=== PATIENT | female | born 1985 | race American Indian/Alaskan Native ===

== ENCOUNTER 2017-03-28 08:03 | Emergency (ER) | payer SELFPAY ==
[2017-03-28 08:16] VITALS: BP 138/86
== END 2017-03-28 11:39 | disposition left against medical advice (07) ==
LOC: ED 08:03
DX: K06.9 Disorder of gingiva and edentulous alveolar ridge, unspecified (principal); Z53.21 Procedure and treatment not carried out due to patient leaving prior to being seen by health care provider

== ENCOUNTER 2017-03-29 18:48 | Emergency (ER) | payer MEDICAID ==
[2017-03-29 22:39] VITALS: BP 115/83
[2017-03-29] MEDS ORDERED: LIDOCAINE VISCOUS 2% PO ONE (23:50)
[2017-03-29] MEDS ORDERED: MOTRIN PO ONE (23:50)
--- NOTE | 2017-03-29 23:56 | Emergency Department Report ---
ED General Adult HPI - General Chief complaint: Dental/Oral Stated complaint: TOOTHACHE Time Seen by Provider: 03/29/17 23:36 Source: patient, RN notes reviewed, old records reviewed Mode of arrival: Ambulatory Limitations: No Limitations - History of Present Illness Initial comments: This is a 31-year-old female. She is previously unknown to me. She reports that she is not . The patient presents to the ER with a complaint of gum pain, and swollen gums, and dental pain. The patient reports that she purchase some [id number] oral gel and feels like this made her symptoms worse. She has poor dentition and reports that she knows that she needs to follow up with a dentist. No other injuries, no other complaints, no airway issues. Report sensitivity to heat, reports cold improves her symptoms. -: Gradual Location: mouth Severity scale (0 -10): 7 Quality: aching Consistency: intermittent Improves with: cold therapy Worsens with: eating Associated Symptoms: denies other symptoms - Related Data Previous Rx's Medication Instructions Recorded Last Taken Type HYDROcodone/ACETAMINOPHEN [Lortab 1 each PO Q6H #10 tablet 03/15/14 Unknown Rx 5-325 mg Tablet] Penicillin Vk [Veetids TAB] 500 mg PO QID #40 tablet 03/15/14 Unknown Rx Azithromycin [Zithromax] 500 mg PO QDAY #3 tablet 08/10/14 Unknown Rx Ondansetron [Zofran Odt] 4 mg PO Q6H #20 tab.rapdis 08/10/14 Unknown Rx Chlorhexidine Mouthwash [Peridex] 15 ml MM BID #1 bottle 03/29/17 Unknown Rx Ibuprofen [Motrin] 600 mg PO Q8H PRN #30 tablet 03/29/17 Unknown Rx oxyCODONE [Roxicodone] 5 mg PO Q6HR PRN #15 tablet 03/29/17 Unknown Rx Allergies Allergy/AdvReac Type Severity Reaction Status Date / Time No Known Allergies Allergy Verified 08/10/14 01:34 ED Review of Systems ROS: Stated complaint: TOOTHACHE Other details as noted in HPI Constitutional: denies: malaise ENT: dental pain. denies: epistaxis Respiratory: denies: cough Cardiovascular: denies: chest pain Gastrointestinal: denies: abdominal pain Musculoskeletal: denies: back pain Skin: denies: lesions Neurological: denies: weakness ED Past Medical Hx - Past Medical History Additional medical history: Patient states that 2 months ago she had her IUD removed and she denies having intercourse since that time. Patient also states he had a negative test at the hospital in [place]. 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 - Social History Smoking Status: Never Smoker Substance Use Type: None - Medications Home Medications: Home Medications Medication Instructions Recorded Confirmed Last Taken Type HYDROcodone/ACETAMINOPHEN [Lortab 1 each PO Q6H #10 tablet 03/15/14 Unknown Rx 5-325 mg Tablet] Penicillin Vk [Veetids TAB] 500 mg PO QID #40 tablet 03/15/14 Unknown Rx Azithromycin [Zithromax] 500 mg PO QDAY #3 tablet 08/10/14 Unknown Rx Ondansetron [Zofran Odt] 4 mg PO Q6H #20 tab.rapdis 08/10/14 Unknown Rx Chlorhexidine Mouthwash [Peridex] 15 ml MM BID #1 bottle 03/29/17 Unknown Rx Ibuprofen [Motrin] 600 mg PO Q8H PRN #30 tablet 03/29/17 Unknown Rx oxyCODONE [Roxicodone] 5 mg PO Q6HR PRN #15 tablet 03/29/17 Unknown Rx ED Physical Exam - General Limitations: No Limitations General appearance: alert, in no apparent distress - Head Head exam: Present: atraumatic, normocephalic - Eye Eye exam: Present: normal appearance, PERRL, EOMI. Absent: nystagmus - ENT ENT exam: Present: normal orophraynx, mucous membranes moist, TM's normal bilaterally, normal external ear exam, other (patient has poor dentition. She has recession in her gingiva. There is gingival hyperplasia and discoloration. There is no stridor or dysphonia. Tooth #17 is partially fractured. Numerous dental caries are noted.) - Neck Neck exam: Present: normal inspection, full ROM. Absent: tenderness, meningismus - Respiratory Respiratory exam: Present: normal lung sounds bilaterally. Absent: respiratory distress, wheezes, rales, rhonchi, stridor, chest wall tenderness, accessory muscle use, decreased breath sounds, prolonged expiratory - Cardiovascular Cardiovascular Exam: Present: regular rate, normal rhythm, normal heart sounds. Absent: systolic murmur, diastolic murmur, rubs, gallop - GI/Abdominal GI/Abdominal exam: Present: soft, normal bowel sounds. Absent: distended, tenderness, guarding, rebound, rigid, pulsatile mass - Extremities Exam Extremities exam: Present: normal inspection, full ROM, normal capillary refill. Absent: pedal edema, joint swelling, calf tenderness - Back Exam Back exam: Present: normal inspection, full ROM. Absent: tenderness, CVA tenderness (R), CVA tenderness (L), muscle spasm, paraspinal tenderness, vertebral tenderness - Neurological Exam Neurological exam: Present: alert, oriented X3, normal gait, other (Extraocular movements intact. Tongue midline. No facial droop. Facial sensation intact to light touch in the V1, V2, V3 distribution bilaterally. 5 and 5 strength in 4 extremities.. Sensation is intact to light touch in 4 extremities.). Absent : motor sensory deficit - Psychiatric Psychiatric exam: Present: normal affect, normal mood - Skin Skin exam: Present: warm, dry, intact, normal color. Absent: rash ED Course Vital Signs 03/29/17 03/29/17 20:00 22:38 Temperature 98.8 F 98.4 F Pulse Rate 93 H 83 Respiratory 18 Rate Blood Pressure 140/83 Blood Pressure 115/83 [Left] O2 Sat by Pulse 100 98 Oximetry ED Medical Decision Making - Lab Data Vital Signs 03/29/17 03/29/17 20:00 22:38 Temperature 98.8 F 98.4 F Pulse Rate 93 H 83 Respiratory 18 Rate Blood Pressure 140/83 Blood Pressure 115/83 [Left] O2 Sat by Pulse 100 98 Oximetry - Medical Decision Making Differential diagnosis: Medication side effect, dentalgia, dental caries, dental pain Pain medication Assessment and plan: 31-year-old female with baseline poor dentition with nonspecific dentalgia. She is afebrile with reassuring vital signs, has no clinical indication of upper airway compromise at this time. She will be started on chlorhexidine, she will be given pain medication, and she is instructed to follow up with outpatient dental. No emergent condition exists at this time. Critical care attestation.: If time is entered above; I have spent that time in minutes in the direct care of this critically ill patient, excluding procedure time. ED Disposition Clinical Impression: Dentalgia Disposition: TO HOME OR SELFCARE Is pt being admited?: No Does the pt Need Aspirin: No Condition: Stable Instructions: Dental Caries (ED) Additional Instructions: Take the medications as directed. Avoid consumption or [place]. and use of follow-up with a dentist within the next week. When taking the oxycodone, do not drive, consume alcohol, or make important decisions. Return to the ER right away with new pain, worsened pain, migration of pain, fevers, chills, chest pain, shortness of breath, intractable nausea or vomiting, inability to tolerate liquid feeds. Prescriptions: Chlorhexidine Mouthwash [Peridex] 15 ml MM BID #1 bottle Ibuprofen [Motrin] 600 mg PO Q8H PRN #30 tablet PRN Reason: Pain oxyCODONE [Roxicodone] 5 mg PO Q6HR PRN #15 tablet PRN Reason: Pain Referrals: PRIMARY CARE,MD [Primary Care Provider] - 3-5 Days [facility] [Outside] - 3-5 Days
== END 2017-03-29 23:55 | disposition home or self-care (01) ==
LOC: ED 18:48
DX: K08.89 Other specified disorders of teeth and supporting structures (principal)
CPT/HCPCS: 99282

== ENCOUNTER 2017-07-19 20:03 | Emergency (ER) | payer MEDICAID ==
[2017-07-19 21:50] VITALS: BP 123/83
[2017-07-19 22:33] LABS: Basophils % (Auto) 0.3 % (0.0-1.8); Eosinophils % (Auto) 1.1 % (0.0-4.3); Hematocrit 38.5 % (30.3-42.9); Hemoglobin 12.4 gm/dl (10.1-14.3); Mean Corpuscular HGB Conc 32 % (30-34); Mean Corpuscular Hemoglobin 28 pg (28-32); Mean Corpuscular Volume 88 fl (79-97); Platelet Count 306 K/mm3 (140-440); Red Blood Count 4.38 M/mm3 (3.65-5.03); Red Cell Distribution Width 13.3 % (13.2-15.2)
[2017-07-19 22:35] LABS: Alanine Aminotransferase 12 units/L (7-56); Albumin 4.3 g/dL (3.9-5); Alkaline Phosphatase 69 units/L (35-129); Anion Gap 19 mmol/L; BUN/Creatinine Ratio 13; Blood Urea Nitrogen 10 mg/dL (7-17); Calcium 9.1 mg/dL (8.4-10.2); Carbon Dioxide 23 mmol/L (22-30); Chloride 101.5 mmol/L (98-107); Glucose 110 mg/dL (65-100); Lipase 31 units/L (13-60); Potassium 3.9 mmol/L (3.6-5.0); Sodium 140 mmol/L (137-145)
[2017-07-19 23:15] LABS: Albumin/Globulin Ratio 1.3 %; Total Protein 7.5 g/dL (6.3-8.2)
== END 2017-07-20 01:15 | disposition left against medical advice (07) ==
LOC: ED 20:03
DX: R10.9 Unspecified abdominal pain (principal); Z53.21 Procedure and treatment not carried out due to patient leaving prior to being seen by health care provider
CPT/HCPCS: 36415; 80048; 80053; 83690; 84484; 84703; 85025; 93005; 93010

== ENCOUNTER 2017-08-21 07:18 | Emergency (ER) | payer MEDICAID ==
[2017-08-21 09:13] LABS: HCG Qualitative,Urine Positive (Negative)
[2017-08-21 09:15] LABS: Bacteria,Urine 2+ /HPF (Negative); Bilirubin,Urine NEG (Negative); Blood,Urine SM (Negative); Color,Urine Yellow (Yellow); Mucus,Urine 2+ /HPF; Nitrite,Urine NEG (Negative)
[2017-08-21 10:38] LABS: Basophils # (Auto) 0.1 K/mm3 (0.0-0.1); Eosinophils # (Auto) 0.1 K/mm3 (0.0-0.4); Eosinophils % (Auto) 0.8 % (0.0-4.3); Hemoglobin 12.5 gm/dl (10.1-14.3); Lymphocytes # (Auto) 3.2 K/mm3 (1.2-5.4); Lymphocytes % (Auto) 40.9 % (13.4-35.0); Mean Corpuscular HGB Conc 33 % (30-34); Mean Corpuscular Hemoglobin 29 pg (28-32); Mean Corpuscular Volume 88 fl (79-97); Monocytes # (Auto) 0.4 K/mm3 (0.0-0.8); Platelet Count 318 K/mm3 (140-440); Red Blood Count 4.31 M/mm3 (3.65-5.03); Red Cell Distribution Width 13.4 % (13.2-15.2)
[2017-08-21 10:54] LABS: Alanine Aminotransferase 18 units/L (7-56); Albumin 4.1 g/dL (3.9-5); BUN/Creatinine Ratio 10; Blood Urea Nitrogen 8 mg/dL (7-17); Calcium 9.2 mg/dL (8.4-10.2); Hemolysis Index 0
[2017-08-21] MEDS ORDERED: REGLAN IV ONE (13:23)
[2017-08-21] MEDS ORDERED: NACL 0.9% 1000 ML 1,000 ML IV ONE (13:23)
[2017-08-21 14:27] VITALS: BP 119/65
--- NOTE | 2017-08-21 14:38 | Emergency Department Report ---
ED N/V/D HPI - General Chief complaint: Abdominal Pain Stated complaint: ABD CRAMPS X2 WKS Time Seen by Provider: 08/21/17 13:23 Source: patient Mode of arrival: Ambulatory Limitations: No Limitations - History of Present Illness Initial comments: This is a 31-year-old female nontoxic, well nourished in appearance, no acute signs of distress presents to the ED with c/o of nausea, vomiting, back pain and abdominal cramps 2 weeks. Patient denies any abdominal pain, fever, chills , nausea, dizziness, tiredness, lethargy, vomiting, chest pain shortness of breath. Patient has back pain as aching with level of 8/10. Patient denies any drug allergies. Patient stated her abdominal cramping is resolved now and is only intermittent in the pelvis region. He denies any vaginal discharge or vaginal bleeding. Patient stated menstrual cycle 07/22/2017. MD complaint: nausea, vomiting, abdominal pain -: week(s) (2) Associated Abdominal Pain: No Radiation: none Severity: mild Pain Scale: 0 Quality: cramping Consistency: intermittent Improves with: none Worsens with: none Associated Symptoms: denies other symptoms. denies: myalgias, chest pain, cough , diaphoresis, fever/chills, headaches, loss of appetite, malaise, nausea/ vomiting, rash, dysuria, shortness of breath, syncope, weakness - Related Data Previous Rx's Medication Instructions Recorded Last Taken Type HYDROcodone/ACETAMINOPHEN [Lortab 1 each PO Q6H #10 tablet 03/15/14 Unknown Rx 5-325 mg Tablet] Penicillin Vk [Veetids TAB] 500 mg PO QID #40 tablet 03/15/14 Unknown Rx Azithromycin [Zithromax] 500 mg PO QDAY #3 tablet 08/10/14 Unknown Rx Ondansetron [Zofran Odt] 4 mg PO Q6H #20 tab.rapdis 08/10/14 Unknown Rx Chlorhexidine Mouthwash [Peridex] 15 ml MM BID #1 bottle 03/29/17 Unknown Rx Ibuprofen [Motrin] 600 mg PO Q8H PRN #30 tablet 03/29/17 Unknown Rx oxyCODONE [Roxicodone] 5 mg PO Q6HR PRN #15 tablet 03/29/17 Unknown Rx Metoclopramide HCl [Reglan TAB] 5 mg PO Q6H #20 tablet 08/21/17 Unknown Rx Nitrofurantoin Woods/M-Cryst 100 mg PO Q12HR #14 capsule 08/21/17 Unknown Rx [Macrobid CAP] Allergies Allergy/AdvReac Type Severity Reaction Status Date / Time No Known Allergies Allergy Verified 08/10/14 01:34 ED Review of Systems ROS: Stated complaint: ABD CRAMPS X2 WKS Other details as noted in HPI Constitutional: denies: chills, fever Eyes: denies: eye pain, eye discharge, vision change ENT: denies: ear pain, throat pain Respiratory: denies: cough, shortness of breath, wheezing Cardiovascular: denies: chest pain, palpitations Endocrine: no symptoms reported Gastrointestinal: nausea, vomiting. denies: abdominal pain, diarrhea Genitourinary: denies: urgency, dysuria, discharge Musculoskeletal: back pain. 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 - Social History Smoking Status: Never Smoker Substance Use Type: Non Opiate Pain - Medications Home Medications: Home Medications Medication Instructions Recorded Confirmed Last Taken Type HYDROcodone/ACETAMINOPHEN [Lortab 1 each PO Q6H #10 tablet 03/15/14 Unknown Rx 5-325 mg Tablet] Penicillin Vk [Veetids TAB] 500 mg PO QID #40 tablet 03/15/14 Unknown Rx Azithromycin [Zithromax] 500 mg PO QDAY #3 tablet 08/10/14 Unknown Rx Ondansetron [Zofran Odt] 4 mg PO Q6H #20 tab.rapdis 08/10/14 Unknown Rx Chlorhexidine Mouthwash [Peridex] 15 ml MM BID #1 bottle 03/29/17 Unknown Rx Ibuprofen [Motrin] 600 mg PO Q8H PRN #30 tablet 03/29/17 Unknown Rx oxyCODONE [Roxicodone] 5 mg PO Q6HR PRN #15 tablet 08/17/17 Unknown Rx Metoclopramide HCl [Reglan TAB] 5 mg PO Q6H #20 tablet 08/21/17 Unknown Rx Nitrofurantoin Woods/M-Cryst 100 mg PO Q12HR #14 capsule 08/21/17 Unknown Rx [Macrobid CAP] ED Physical Exam - General Limitations: No Limitations General appearance: alert, in no apparent distress - Head Head exam: Present: atraumatic, normocephalic, normal inspection - Eye Eye exam: Present: normal appearance, PERRL, EOMI. Absent: scleral icterus, conjunctival injection, nystagmus, periorbital swelling, periorbital tenderness Pupils: Present: normal accommodation - ENT ENT exam: Present: normal exam, normal orophraynx, mucous membranes moist, TM's normal bilaterally, normal external ear exam - Neck Neck exam: Present: normal inspection, full ROM. Absent: tenderness, meningismus, lymphadenopathy, thyromegaly - Respiratory Respiratory exam: Present: normal lung sounds bilaterally. Absent: respiratory distress - Cardiovascular Cardiovascular Exam: Present: regular rate, normal rhythm, normal heart sounds. Absent: bradycardia, tachycardia, irregular rhythm, systolic murmur, diastolic murmur, rubs, gallop - GI/Abdominal GI/Abdominal exam: Present: soft, normal bowel sounds. Absent: distended, tenderness, guarding, rebound, rigid, diminished bowel sounds - Expanded GI/Abdominal Exam Expanded GI/Abdominal exam: Absent: psoas sign, obturator sign, heel tap sign, Gilmore's sign, Rovsing's sign, tenderness at [place]bur[place]'s Point, ascites - Rectal Rectal exam: Present: deferred - Extremities Exam Extremities exam: Present: normal inspection, full ROM, normal capillary refill. Absent: tenderness, pedal edema, joint swelling, calf tenderness - Back Exam Back exam: Present: normal inspection, full ROM, paraspinal tenderness (lumbar region). Absent: tenderness, CVA tenderness (R), CVA tenderness (L), muscle spasm, vertebral tenderness, rash noted - Expanded Back Exam Expanded Back exam: Absent: saddle anesthesia Back exam: Negative Straight Leg Raising: Left, Right - Neurological Exam Neurological exam: Present: alert, oriented X3, CN II-XII intact, normal gait, reflexes normal - Psychiatric Psychiatric exam: Present: normal affect, normal mood - Skin Skin exam: Present: warm, dry, intact, normal color. Absent: rash ED Course Vital Signs 08/21/17 08/21/17 08/21/17 07:43 14:26 14:27 Temperature 98.4 F 98 F Pulse Rate 114 H 104 H Respiratory 16 18 20 Rate Blood Pressure 125/75 Blood Pressure 119/65 [Left] O2 Sat by Pulse 95 100 Oximetry - Reevaluation(s) Reevaluation #1: 08/21/17 14:48 Patient is speaking in full sentences with no signs of distress noted. ED Medical Decision Making - Lab Data Result diagrams: 08/21/17 Unknown 08/21/17 Unknown - Medical Decision Making This is a 31-year-old female presents with positive and nausea vomiting. Patient is stable and was examined by me. CBC, BMP, UA, and as as obtained. UA indicates UTI. Patient received 1 L of normal saline and 10 mg of Reglan. Quantitative test obtained. Patient stated she felt much better and a by mouth challenge has been obtained and patient tolerated well with no nausea vomiting. Patient discharged with Macrobid, Reglan. Patient was instructed to increase hydration. At time time of discharge, the patient does not seem toxic or ill in appearance. No acute signs of distress noted. Patient agrees to discharge treatment plan of care. No further questions noted by the patient. Critical care attestation.: If time is entered above; I have spent that time in minutes in the direct care of this critically ill patient, excluding procedure time. ED Disposition Clinical Impression: Qualifiers: Weeks of gestation: unspecified Qualified Code(s): Z34.90 - Encounter for supervision of normal , unspecified, unspecified trimester Nausea & vomiting Qualifiers: Vomiting type: unspecified Vomiting Intractability: non-intractable Qualified Code(s): R11.2 - Nausea with vomiting, unspecified UTI (urinary tract infection) Qualifiers: Urinary tract infection type: site unspecified Hematuria presence: with hematuria Qualified Code(s): N39.0 - Urinary tract infection, site not specified Disposition: -01 TO HOME OR SELFCARE Is pt being admited?: No Does the pt Need Aspirin: No Condition: Stable Instructions: Metoclopramide (By mouth), Nitrofurantoin Combination (By mouth) , (ED), Urinary Tract Infection in Women (ED) Additional Instructions: Follow-up with a primary care doctor/rn hospital in 3-5 days or if symptoms worsen and continue return to emergency room as soon as possible. Increase hydration as much as possible. Prescriptions: Metoclopramide HCl [Reglan TAB] 5 mg PO Q6H #20 tablet Nitrofurantoin Woods/M-Cryst [Macrobid CAP] 100 mg PO Q12HR #14 capsule Referrals: DERRICK MARTIN MD [Primary Care Provider] - 3-5 Days PRIMARY CARE, [Referring] - 3-5 Days MADDIE ALBA MD [Staff Physician] - 3-5 Days [facility] [Outside] - 3-5 Days [facility] [Outside] - 3-5 Days Forms: Work/School Release Form(ED)
== END 2017-08-21 15:51 | disposition home or self-care (01) ==
LOC: ED 07:18
DX: O23.41 Unspecified infection of urinary tract in pregnancy, first trimester (principal); Z3A.01 Less than 8 weeks gestation of pregnancy
CPT/HCPCS: 36415; 80053; 81001; 81025; 84702; 85025; 96361; 96374; 99283; J2765; J7030

== ENCOUNTER 2018-03-16 00:48 | Outpatient (CLI) | payer MEDICAID ==
[2018-03-16 01:23] VITALS: BP 106/70
[2018-03-16] MEDS ORDERED: LACTATED RINGERS 1,000 ML IV ONE (01:36)
[2018-03-16 01:58] LABS: Bacteria,Urine 1+ /HPF (Negative); Bilirubin,Urine NEG (Negative); Blood,Urine NEG (Negative); Color,Urine Yellow (Yellow); Hyaline Casts,Urine 2 /LPF; Mucus,Urine 1+ /HPF; Urobilinogen,Urine < 2.0 mg/dL (<2.0)
--- NOTE | 2018-03-16 03:00 | Ultrasound Report ---
FINAL REPORT EXAM: US OB LIMITED HISTORY: s/p fall TECHNIQUE: A limited OB sonogram was obtained for evaluation of the placenta. FINDINGS: The placenta is anterior and is grade 1. There is no evidence of placental abruption or previa. The heart rate is 154 BPM. The fetus is in transverse position with the head toward the maternal left side. IMPRESSION: No evidence of placental abruption or previa. The heart rate is 154 BPM.
--- NOTE | 2018-03-16 03:02 | Ultrasound Report ---
FINAL REPORT EXAM: US OB BPP WO NON-STRESS HISTORY: s/p fall TECHNIQUE: A limited OB sonogram was obtained for evaluation of the biophysical profile. FINDINGS: For breathing movements, a score of 2 out of 2 was obtained. For movements, a score of 2 out of 2 was obtained. For posture in tone, a score of 2 out of 2 was obtained. For qualitative amniotic fluid volume, a score of 2 out of 2 was obtained. The heart rate is 154 BPM. IMPRESSION: Biophysical profile score of 8 out of 8. The heart rate is 154 BPM.
== END 2018-03-16 03:31 | disposition home or self-care (01) ==
LOC: TRG 00:48
PROVIDERS: ATTEND Obstetrics & Gynecology
DX: O47.03 False labor before 37 completed weeks of gestation, third trimester (principal); Z3A.33 33 weeks gestation of pregnancy
CPT/HCPCS: 59025; 76815; 76819; 81001; 82962

== ENCOUNTER 2018-04-15 20:17 | Inpatient (IN) | payer MEDICAID ==
[2018-04-15] MEDS ORDERED: ZOFRAN IV PRN (20:22)
[2018-04-15] MEDS ORDERED: BRETHINE IVP PRN (20:22)
[2018-04-15] MEDS ORDERED: XYLOCAINE 2% INFILTRATI ONE (20:22)
[2018-04-15] MEDS ORDERED: BRETHINE SUB-Q PRN (20:22)
[2018-04-15] MEDS ORDERED: CERVIDIL VG ONE (20:22)
[2018-04-15] MEDS ORDERED: MINERAL OIL PO PRN (20:22)
[2018-04-15] MEDS ORDERED: PITOCin/NS 20 UNIT/1000ML DRIP 20 UNITS/1,000 ML BAG IV SCH (21:00)
[2018-04-15] MEDS ORDERED: POLYCILLIN/NS 2 GM/100 ML 2 GM/100 ML BAG IV SCH (21:00)
[2018-04-15] MEDS ORDERED: PITOCin/NS 30 UNIT/500ML 30 UNITS/500 ML BAG IV SCH (21:00)
[2018-04-15 21:35] LABS: Hemoglobin 10.3 gm/dl (10.1-14.3); Mean Corpuscular HGB Conc 33 % (30-34); Mean Corpuscular Hemoglobin 29 pg (28-32); Mean Corpuscular Volume 87 fl (79-97); Platelet Count 231 K/mm3 (140-440); Red Blood Count 3.58 M/mm3 (3.65-5.03); Red Cell Distribution Width 14.9 % (13.2-15.2)
[2018-04-15] MEDS ORDERED: AMBIEN PO PRN (21:41)
[2018-04-15] MEDS ORDERED: TYLENOL PO ONE (21:45)
[2018-04-15] MEDS: LACTATED RINGERS 1,000 ML IV SCH (22:01)
[2018-04-15] MEDS ORDERED: PEPCID IV ONE (23:00)
[2018-04-16] MEDS ORDERED: AMPICILLIN/NS 1 GM/50 ML 1 GM/50 ML BAG IV SCH (01:00)
--- NOTE | 2018-04-16 01:03 | Ultrasound Report ---
FINAL REPORT PROCEDURE: US OB LIMITED TECHNIQUE: Real-time limited sonographic examination was performed for evaluation of size, position, heartbeat, fluid volume for each fetus with image documentation (1 or more fetuses). CPT 33380 HISTORY: presentation/ position COMPARISON: 03/16/2018 FINDINGS: biophysical profile: breathing movements: 0. movements: 2. Posterior and tone: 2. Amniotic fluid volume: 2. Total score: 6/8. heart rate: 142 beats per minute. IMPRESSION: biophysical profile is 6/8 due to decreased breathing movements.
--- NOTE | 2018-04-16 01:31 | History and Physical Report ---
History of Present Illness Date of examination: 04/16/18 (pt presents for IOL as per recommendation of [facility] ) Date of admission: 04/15/18 20:17 History of present illness: EDC Confirmation: 04/28/2018 Gestational Age: 7 3/7 weeks Past History : 5 Term Births: 2 Living Children: 2 Para: 2 Aborta: 2 Ectopics: 2 # 1 Delivery date: 07/21/2006 Weeks Gestation: 40 Delivery type: Delivery location: [facility] Infant Sex: Female weight: 9lb 12oz # 2 Delivery date: 06/27/2007 Weeks Gestation: 40 Delivery type: Delivery location: [facility] Infant Sex: Female weight: 9lb # 3 Delivery date: 10/2016 Delivery type: ectopic # 4 Delivery date: 2016 Delivery type: ectopic Past Medical History: Fast heart rate diagnosed in ED; has appt to follow up with cardiology Past Surgical History: two ectopics in 2016 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 Abnormal PAP: negative Family Hx: Mother-HTN Father from thyroid cancer Social Hx: Denies smoking/drugs/alcohol Infection History Hx of STD: none HIV Risk Eval: no Personal hx. of genital herpes: no Partner hx. of genital herpes: no Rash, Viral, or Febrile illness since last LMP? no Varicella/Chicken Pox Status: Previous Disease Genetic History Congenital Heart Defect: Mom: no Dad: no Sid Disease: Mom: no Dad: no Thalassemia Mom: no Dad: no Neural Tube Defect Mom: no Dad: no Down's Syndrome Mom: no Dad: no Spencer-Sachs Mom: no Dad: no Sickle Cell Disease/Trait Mom: no Dad: no Hemophilia Mom: no Dad: no Muscular Dystrophy Mom: no Dad: no Cystic Fibrosis Mom: no Dad: no [place] Chorea Mom: no Dad: no Mental Retardation Mom: no Dad: no Fragile X Mom: no Dad: no Other Genetic/Chromosomal Disorder Mom: no Dad: no Child w/other defect Mom: no Dad: no Enviromental Exposures Medication, drug, or alcohol use since LMP: no Exposure to Cat Liter: no Active Medications (reviewed today): None Current Allergies (reviewed today): No known allergies Past History - Obstetrical History Expected Date of Delivery: 04/28/18 Actual Gestation: 38 Week(s) 2 Day(s) : 5 Para: 2 Hx # Term Pregnancies: 2 Number of Pregnancies: 0 Spontaneous Abortions: 0 Induced : 2 (ectopics X 2) Number of Living Children: 2 Medications and Allergies Allergies Allergy/AdvReac Type Severity Reaction Status Date / Time No Known Allergies Allergy Verified 08/10/14 01:34 Home Medications Medication Instructions Recorded Confirmed Last Taken Type HYDROcodone/ACETAMINOPHEN [Lortab 1 each PO Q6H #10 tablet 03/15/14 Unknown Rx 5-325 mg Tablet] Penicillin Vk [Veetids TAB] 500 mg PO QID #40 tablet 03/15/14 Unknown Rx Azithromycin [Zithromax] 500 mg PO QDAY #3 tablet 08/10/14 Unknown Rx Ondansetron [Zofran Odt] 4 mg PO Q6H #20 tab.rapdis 08/10/14 Unknown Rx Chlorhexidine Mouthwash [Peridex] 15 ml MM BID #1 bottle 03/29/17 Unknown Rx Ibuprofen [Motrin] 600 mg PO Q8H PRN #30 tablet 03/29/17 Unknown Rx oxyCODONE [Roxicodone] 5 mg PO Q6HR PRN #15 tablet 03/29/17 Unknown Rx Metoclopramide HCl [Reglan TAB] 5 mg PO Q6H #20 tablet 08/21/17 Unknown Rx Nitrofurantoin [place]/M-Cryst 100 mg PO Q12HR #14 capsule 08/21/17 Unknown Rx [Macrobid CAP] Active Meds: Active Medications Ephedrine Sulfate (Ephedrine Sulfate) 10 mg IV Q2M PRN PRN Reason: Hypotension Fentanyl (Sublimaze) 100 mcg IV Q2H PRN PRN Reason: Labor Pain Lactated Ringer's (Lactated Ringers) 1,000 mls @ 125 mls/hr IV DIRECT WALTER Last Admin: 04/15/18 22:01 Dose: 125 mls/hr Oxytocin/Sodium Chloride (Pitocin/Ns 20 Unit/1000ml Drip) 20 units in 1,000 mls @ 125 mls/hr IV DIRECT WALTER Oxytocin/Sodium Chloride (Pitocin/Ns 30 Unit/500ml) 30 units in 500 mls @ 1 mls /hr IV TITR WALTER; Protocol Ampicillin Sodium (Ampicillin/Ns 1 Gm/50 Ml) 1 gm in 50 mls @ 100 mls/hr IV Q4HR WALTER; Protocol Mineral Oil (Mineral Oil) 30 ml PO QHS PRN PRN Reason: Constipation Ondansetron HCl (Zofran) 4 mg IV Q8H PRN PRN Reason: Nausea And Vomiting Terbutaline Sulfate (Brethine) 0.25 mg SUB-Q ONCE PRN PRN Reason: Hyperstimulation/Hypertonicity Terbutaline Sulfate (Brethine) 0.25 mg IVP ONCE PRN PRN Reason: Hyperstimulation/Hypertonicity Zolpidem Tartrate (Ambien) 10 mg PO QHS PRN PRN Reason: Insomnia - Vital Signs Vital signs: Vital Signs Temp Pulse Resp BP 98.2 F 98 H 16 131/75 04/15/18 20:34 04/15/18 20:34 04/15/18 20:34 04/15/18 20:34 Temp Pulse Resp BP Pulse Ox 98.1 F 89 18 134/80 96 04/16/18 01:15 04/16/18 01:25 04/16/18 01:15 04/16/18 01:15 04/16/18 01:25 - Physical Exam Breasts: Positive: deferred Cardiovascular: Regular rate, Normal S1, Normal S2 Lungs: Positive: Normal air movement Abdomen: Positive: normal appearance, soft, normal bowel sounds. Negative: distention, tenderness Genitourinary (Female): Positive: normal external genitalia Vulva: both: normal Vagina: Positive: normal moisture. Negative: discharge Cervix: Negative: lesion, discharge Uterus: Positive: normal size, normal contour Adnexa: both: normal Anus/Rectum: Positive: normal perianal skin, heme negative. Negative: rectal mass, hemorrhoids Extremities: Positive: normal Deep Tendon Reflex Grade: Normal +2 - Obstetrical FHR: category 1 Uterine Contraction Monitor Mode: External Cervical Dilatation: 1 (cervidil in place) Cervical Effacement Percentage: 40 station: -3 Uterine Contraction Pattern: Regular Uterine Tone Measurement Phase: Resting Uterine Contraction Intensity: Mild Results Result Diagrams: 04/15/18 21:00 Abnormal lab results 04/15/18 04/15/18 Range/Units 21:00 22:57 RBC 3.58 L (3.65-5.03) M/mm3 POC Glucose 111 H (70-105) All other labs normal. Strep Gp B TANJA [A] Positive HBsAg Screen Negative Negative *1 RPR Non Reactive Non Reactive *2 Rubella Antibodies, IgG 2.67 index Immune >0.99 *3 Non-immune <0.90 Equivocal 0.90 - 0.99 Immune >0.99 ABO Grouping O *4 Rh Factor Positive *5 Please note: Prior records for this patient's ABO / Rh type are not available for additional verification. Antibody Screen Negative Negative *6 WBC 3.6 x10E3/uL 3.4-10.8 *7 RBC 3.84 x10E6/uL 3.77-5.28 *8 Hemoglobin [L] 10.9 g/dL 11.1-15.9 *9 Hematocrit 34.3 % 34.0-46.6 *10 MCV 89 fL 79-97 *11 MCH 28.4 pg 26.6-33.0 *12 MCHC 31.8 g/dL 31.5-35.7 *13 RDW 14.3 % 12.3-15.4 *14 Platelets 308 x10E3/uL 150-379 *15 Neutrophils 65 % Not Estab. *16 Lymphs 28 % Not Estab. *17 Monocytes 6 % Not Estab. *18 Eos 1 % Not Estab. *19 Basos 0 % Not Estab. *20 ! Immature Cells <No Reported Value> *21 Neutrophils (Absolute) 2.3 x10E3/uL 1.4-7.0 *22 Lymphs (Absolute) 1.0 x10E3/uL 0.7-3.1 *23 Monocytes(Absolute) 0.2 x10E3/uL 0.1-0.9 *24 Eos (Absolute) 0.1 x10E3/uL 0.0-0.4 *25 Baso (Absolute) 0.0 x10E3/uL 0.0-0.2 *26 ! Immature Granulocytes 0 % Not Estab. *27 ! Immature Grans (Abs) 0.0 x10E3/uL 0.0-0.1 *28 ! NRBC <No Reported Value> *29 Hematology Comments: <No Reported Value> *30 Tests: (2) Cystic Fibrosis Profile (131707) ! CF, Screen Comment: *31 RESULTS: Negative for 32 mutations analyzed Tests: (3) HB Solu + Rflx Fra (721975) Hemoglobin (Hgb) Solubility Negative Negative *33 Tests: (4) Panel 532425 ([id number]) HIV Screen 4th Generation wRfx Non Reactive Non Reactive *34 Tests: (5) Gest. Diabetes 1-Hr Screen (193226) ! Gestational Diabetes Screen [H] 195 mg/dL 65-139 *35 According to ADA, a glucose threshold of >139 mg/dL after 50-gram load identifies approximately 80% of women with gestational diabetes mellitus, while the sensitivity is further increased to approximately 90% by a threshold of >129 mg/dL. Tests: (6) HCV Ab w/Rflx to Verification (595867) ! HCV Ab <0.1 s/co ratio 0.0-0.9 *36 Tests: (7) Comment: (476209) ! Comment: SPRCS *37 Non reactive HCV antibody screen is consistent with no HCV infection, unless recent infection is suspected or other evidence exists to indicate HCV infection. Tests: (8) Urine Culture, Routine ([id number]) Urine Culture, Routine Final report *38 Tests: (9) Result ([id number]) ! Result 1 MUG *39 Mixed urogenital tamar 10,000-25,000 colony forming units per mL Assessment and Plan 32yo @ 38w2d here for IOL as per AMFM concern with uncontrolled GDM. GBS+. Polyhydramnios. Orders in EMR. - Patient Problems (1) Gestational diabetes mellitus, diet-controlled Onset Date: ~04/16/18 Current Visit: Yes Status: Acute Qualifiers: Trimester: third trimester Qualified Code(s): O24.410 - Gestational diabetes mellitus in , diet controlled Plan to address problem: As per AMFM recommendation Pt is here for IOL due to uncontrolled GDM. Pt's last EFW on 03-29-18 was [id number]. Pt presented aware of IOL. Cervidil placed SVE 1,40,-3 Cervix re-evaluated this AM no chg since admission. Reviewed POC with pt and family. All questions addressed. aware of pt. (2) Glycosuria Onset Date: ~04/16/18 Current Visit: Yes Status: Acute Plan to address problem: Pt has had 500 to 1000 mg glucose in random voided specimens over the last week (3) Polyhydramnios affecting in third trimester Onset Date: ~04/16/18 Current Visit: Yes Status: Acute Plan to address problem: Last reported CHRISTINA from [facility] 27 (4) Group B streptococcal carriage complicating Onset Date: ~04/16/18 Current Visit: Yes Status: Acute Plan to address problem: Pt is GBS + will treat per protocol. Anticipate starting when pitocin is started after cervidil is removed
[2018-04-16] MEDS: SUBLIMAZE IV PRN ×3 (02:36→11:33)
[2018-04-16 03:02] LABS: Bilirubin,Urine NEG (Negative); Blood,Urine NEG (Negative); Color,Urine Yellow (Yellow); Mucus,Urine FEW /HPF; Protein,Urine <15 mg/dL mg/dL (Negative); Urobilinogen,Urine < 2.0 mg/dL (<2.0)
[2018-04-16 03:16] LABS: Amphetamine Screen,Urine PRESUMPTIVE NEGATIVE; Benzodiazepines Screen,Urine PRESUMPTIVE NEGATIVE; Cannabinoid Screen,Urine PRESUMPTIVE NEGATIVE; Cocaine Screen,Urine PRESUMPTIVE NEGATIVE; Methadone Screen,Urine PRESUMPTIVE NEGATIVE; Opiate Screen,Urine PRESUMPTIVE NEGATIVE
[2018-04-16] MEDS ORDERED: POLYCILLIN/NS 2 GM/100 ML 2 GM/100 ML BAG IV SCH (04:00)
[2018-04-16] MEDS: LACTATED RINGERS 1,000 ML IV SCH ×2 (07:04→17:49)
[2018-04-16] MEDS ORDERED: STADOL IV PRN (07:45)
[2018-04-16] MEDS ORDERED: PITOCin/NS 30 UNIT/500ML 30 UNITS/500 ML BAG IV SCH ×2 (11:00→11:14)
[2018-04-16] MEDS: AMPICILLIN/NS 1 GM/50 ML 1 GM/50 ML BAG IV SCH ×2 (11:00→15:07)
[2018-04-16] MEDS ORDERED: NARCAN 2 MG/2 ML IV PRN (13:19)
--- NOTE | 2018-04-16 13:19 | Anesthesia Consultation ---
Anesthesia Consult and Med Hx Date of service: 04/16/18 - Airway Anesthetic Teeth Evaluation: Good ROM Head & Neck: Adequate Mallampati Class: Class II Intubation Access Assessment: Probably Good - Pre-Operative Health Status ASA Pre-Surgery Classification: ASA2 Proposed Anesthetic Plan: Epidural, Spinal - Pulmonary Hx Asthma: No COPD: No Hx Pneumonia: No - Cardiovascular System Hx Hypertension: No - Central Nervous System Hx Seizures: No Hx Psychiatric Problems: No - Endocrine Hx Renal Disease: No Hx End Stage Renal Disease: No Hx Non-Insulin Dependent Diabetes: Yes (GDM) Hx Hypothyroidism: No Hx Hyperthyroidism: No - Hematic Hx Anemia: No Hx Sickle Cell Disease: No - Other Systems Hx Alcohol Use: No Hx Obesity: Yes (BMI 36.2)
--- NOTE | 2018-04-16 13:47 | Progress Note ---
Assessment and Plan patient comfortable s/p epidural placement. SVE after epidural 2-3/70/-3, head balotable and unable to perform AROM/ISE/IUPC d/t station. Pitocin currently off d/t repetitive late decels that have resolved with position change. Patient aware of risk of cord prolapse with SROM/AROM. She has also been counseled on potential need for operative delivery if tracing does not tolerate labor process. Will allow time for FHT to reciver before restarting pitocin. Ampicillin IVPB q4h for + GBS. Dr. Hawthorne aware of patient' s status. - Patient Problems (1) Poorly controlled diabetes mellitus Current Visit: Yes Status: Acute (2) 38 weeks gestation of Current Visit: Yes Status: Acute (3) Group B streptococcal carriage complicating Onset Date: ~04/16/18 Current Visit: Yes Status: Acute (4) Polyhydramnios affecting in third trimester Onset Date: ~04/16/18 Current Visit: Yes Status: Acute Subjective - Subjective Date of service: 04/16/18 Principal diagnosis: IUP @ 38wk2d, uncontrolled GDM, Poly, IOL Patient reports: no new complaints (comfortable with epidural) Objective - Vital Signs Vital Signs: Vital Signs - 12hr 04/16/18 04/16/18 04/16/18 01:43 01:48 01:53 Temperature Pulse Rate 97 H 91 H 96 H Respiratory Rate Blood Pressure Blood Pressure [Right] O2 Sat by Pulse 95 96 96 Oximetry 04/16/18 04/16/18 04/16/18 01:58 02:03 02:08 Temperature Pulse Rate 94 H 96 H 91 H Respiratory Rate Blood Pressure Blood Pressure [Right] O2 Sat by Pulse 95 96 94 Oximetry 04/16/18 04/16/18 04/16/18 02:09 02:13 02:14 Temperature Pulse Rate 90 99 H 99 H Respiratory Rate Blood Pressure Blood Pressure [Right] O2 Sat by Pulse 94 95 94 Oximetry 04/16/18 04/16/18 04/16/18 02:18 02:19 02:28 Temperature Pulse Rate 92 H 93 H 96 H Respiratory Rate Blood Pressure Blood Pressure [Right] O2 Sat by Pulse 96 94 99 Oximetry 04/16/18 04/16/18 04/16/18 02:33 02:36 02:38 Temperature Pulse Rate 87 100 H Respiratory 16 Rate Blood Pressure Blood Pressure [Right] O2 Sat by Pulse 98 96 Oximetry 04/16/18 04/16/18 04/16/18 02:43 02:48 02:53 Temperature Pulse Rate 103 H 102 H 113 H Respiratory Rate Blood Pressure Blood Pressure [Right] O2 Sat by Pulse 97 96 97 Oximetry 04/16/18 04/16/18 04/16/18 02:58 03:03 03:06 Temperature Pulse Rate 108 H 112 H Respiratory 16 Rate Blood Pressure Blood Pressure [Right] O2 Sat by Pulse 96 95 Oximetry 04/16/18 04/16/18 04/16/18 03:08 03:13 03:18 Temperature Pulse Rate 103 H 102 H 105 H Respiratory Rate Blood Pressure Blood Pressure [Right] O2 Sat by Pulse 96 96 96 Oximetry 04/16/18 04/16/18 04/16/18 03:23 03:28 03:33 Temperature Pulse Rate 94 H 101 H 96 H Respiratory Rate Blood Pressure Blood Pressure [Right] O2 Sat by Pulse 96 96 96 Oximetry 04/16/18 04/16/18 04/16/18 03:38 03:43 03:48 Temperature Pulse Rate 103 H 103 H 105 H Respiratory Rate Blood Pressure 115/68 Blood Pressure [Right] O2 Sat by Pulse 96 97 96 Oximetry 04/16/18 04/16/18 04/16/18 03:53 03:58 03:59 Temperature Pulse Rate 98 H 113 H 111 H Respiratory Rate Blood Pressure Blood Pressure [Right] O2 Sat by Pulse 95 94 94 Oximetry 04/16/18 04/16/18 04/16/18 04:03 04:07 04:08 Temperature Pulse Rate 105 H 109 H 111 H Respiratory Rate Blood Pressure Blood Pressure [Right] O2 Sat by Pulse 95 93 95 Oximetry 04/16/18 04/16/18 04/16/18 04:12 04:13 04:18 Temperature Pulse Rate 100 H 100 H 107 H Respiratory Rate Blood Pressure Blood Pressure [Right] O2 Sat by Pulse 94 96 95 Oximetry 04/16/18 04/16/18 04/16/18 04:19 04:27 04:32 Temperature Pulse Rate 104 H 103 H Respiratory Rate Blood Pressure Blood Pressure [Right] O2 Sat by Pulse 94 97 96 Oximetry 04/16/18 04/16/18 04/16/18 04:37 04:38 04:40 Temperature Pulse Rate 102 H 108 H Respiratory 18 Rate Blood Pressure 124/77 Blood Pressure [Right] O2 Sat by Pulse 93 94 Oximetry 04/16/18 04/16/18 04/16/18 04:42 04:45 04:47 Temperature Pulse Rate 106 H 103 H 110 H Respiratory Rate Blood Pressure Blood Pressure [Right] O2 Sat by Pulse 96 94 94 Oximetry 04/16/18 04/16/18 04/16/18 04:52 04:57 05:02 Temperature Pulse Rate 102 H 100 H 104 H Respiratory Rate Blood Pressure Blood Pressure [Right] O2 Sat by Pulse 94 95 95 Oximetry 04/16/18 04/16/18 04/16/18 05:07 05:10 05:12 Temperature Pulse Rate 104 H 100 H Respiratory 16 Rate Blood Pressure Blood Pressure [Right] O2 Sat by Pulse 95 92 Oximetry 04/16/18 04/16/18 04/16/18 05:17 05:22 05:27 Temperature Pulse Rate 104 H 99 H 98 H Respiratory Rate Blood Pressure Blood Pressure [Right] O2 Sat by Pulse 92 92 92 Oximetry 04/16/18 04/16/18 04/16/18 05:32 05:34 05:37 Temperature Pulse Rate 104 H 102 H 102 H Respiratory Rate Blood Pressure Blood Pressure [Right] O2 Sat by Pulse 96 94 97 Oximetry 04/16/18 04/16/18 04/16/18 05:40 05:42 05:46 Temperature Pulse Rate 103 H 96 H 105 H Respiratory Rate Blood Pressure Blood Pressure [Right] O2 Sat by Pulse 92 96 94 Oximetry 04/16/18 04/16/18 04/16/18 05:47 05:52 05:57 Temperature 86.7 F L Pulse Rate 104 H 107 H 102 H Respiratory 20 Rate Blood Pressure 135/86 Blood Pressure 135/86 [Right] O2 Sat by Pulse 98 94 95 Oximetry 04/16/18 04/16/18 04/16/18 06:02 06:07 06:12 Temperature Pulse Rate 103 H 98 H 103 H Respiratory Rate Blood Pressure Blood Pressure [Right] O2 Sat by Pulse 98 96 96 Oximetry 04/16/18 04/16/18 04/16/18 06:18 06:22 06:27 Temperature Pulse Rate 98 H 94 H 102 H Respiratory Rate Blood Pressure Blood Pressure [Right] O2 Sat by Pulse 96 96 96 Oximetry 04/16/18 04/16/18 04/16/18 06:32 06:38 06:39 Temperature Pulse Rate 97 H 98 H 100 H Respiratory Rate Blood Pressure 120/76 Blood Pressure [Right] O2 Sat by Pulse 97 95 93 Oximetry 04/16/18 04/16/18 04/16/18 06:43 06:48 06:53 Temperature Pulse Rate 104 H 97 H 98 H Respiratory Rate Blood Pressure Blood Pressure [Right] O2 Sat by Pulse 95 97 97 Oximetry 04/16/18 04/16/18 04/16/18 06:59 07:03 07:08 Temperature Pulse Rate 97 H 101 H 108 H Respiratory Rate Blood Pressure Blood Pressure [Right] O2 Sat by Pulse 97 97 97 Oximetry 04/16/18 04/16/18 04/16/18 07:09 07:13 07:28 Temperature Pulse Rate 86 104 H 105 H Respiratory Rate Blood Pressure 134/84 Blood Pressure [Right] O2 Sat by Pulse 91 96 Oximetry 04/16/18 04/16/18 04/16/18 07:31 07:36 07:37 Temperature Pulse Rate 109 H 98 H 111 H Respiratory Rate Blood Pressure 137/78 Blood Pressure [Right] O2 Sat by Pulse 97 98 Oximetry 04/16/18 04/16/18 04/16/18 07:40 07:46 07:51 Temperature Pulse Rate 110 H 107 H 103 H Respiratory Rate Blood Pressure Blood Pressure [Right] O2 Sat by Pulse 97 97 95 Oximetry 04/16/18 04/16/18 04/16/18 07:56 08:01 08:04 Temperature Pulse Rate 95 H 108 H 109 H Respiratory Rate Blood Pressure 115/70 Blood Pressure [Right] O2 Sat by Pulse 97 94 Oximetry 04/16/18 04/16/18 04/16/18 08:13 08:38 09:38 Temperature 98.6 F Pulse Rate 107 H 113 H 108 H Respiratory 20 Rate Blood Pressure 151/80 130/80 Blood Pressure 134/84 [Right] O2 Sat by Pulse 97 Oximetry 04/16/18 04/16/18 10:39 11:38 Temperature Pulse Rate 110 H 102 H Respiratory Rate Blood Pressure 129/75 106/63 Blood Pressure [Right] O2 Sat by Pulse Oximetry - Exam Breasts: normal Cardiovascular: Regular rate Lungs: Clear to auscultation, Normal air movement Abdomen: Present: normal appearance, soft Vulva: both: normal Uterus: Present: normal FHR: category 2 Uterine Contraction Monitor Mode: External Cervical Dilatation: 2.5 (tight bag of water noted, head balotable) Cervical Effacement Percentage: 70 station: -3 Uterine Contraction Frequency (min): q2-3.5 Uterine Contraction Duration: 80 Uterine Contraction Pattern: Regular Uterine Tone Measurement Phase: Contraction Uterine Contraction Intensity: Moderate Extremities: normal Deep Tendon Reflex Grade: Normal +2 - Labs Labs: Abnormal Labs 04/15/18 04/15/18 04/16/18 21:00 22:57 07:09 RBC 3.58 L POC Glucose 111 H Hemoglobin A1c 7.1 H Laboratory Results - last 24 hr 04/15/18 04/15/18 04/15/18 21:00 21:00 21:00 WBC 6.9 RBC 3.58 L Hgb 10.3 Hct 31.0 MCV 87 MCH 29 MCHC 33 RDW 14.9 Plt Count 231 POC Glucose Hemoglobin A1c Urine Color Urine Turbidity Urine pH Ur Specific [place] Urine Protein Urine Glucose (UA) Urine Ketones Urine Blood Urine Nitrite Urine Bilirubin Urine Urobilinogen Ur Leukocyte Esterase Urine WBC (Auto) Urine RBC (Auto) U Epithel Cells (Auto) Urine Mucus Urine Opiates Screen Urine Methadone Screen Ur Barbiturates Screen Ur Phencyclidine Scrn Ur Amphetamines Screen U Benzodiazepines Scrn Urine Cocaine Screen U Marijuana (THC) Screen Drugs of Abuse Note RPR Nonreactive Blood Type O POSITIVE Antibody Screen Negative 04/15/18 04/16/18 04/16/18 22:57 02:40 02:40 WBC RBC Hgb Hct MCV MCH MCHC RDW Plt Count POC Glucose 111 H Hemoglobin A1c Urine Color Yellow Urine Turbidity Clear Urine pH 5.0 Ur Specific [place] 1.016 Urine Protein <15 mg/dl Urine Glucose (UA) 50 Urine Ketones 20 Urine Blood Neg Urine Nitrite Neg Urine Bilirubin Neg Urine Urobilinogen < 2.0 Ur Leukocyte Esterase Neg Urine WBC (Auto) 1.0 Urine RBC (Auto) 2.0 U Epithel Cells (Auto) < 1.0 Urine Mucus Few Urine Opiates Screen Presumptive negative Urine Methadone Screen Presumptive negative Ur Barbiturates Screen Presumptive negative Ur Phencyclidine Scrn Presumptive negative Ur Amphetamines Screen Presumptive negative U Benzodiazepines Scrn Presumptive negative Urine Cocaine Screen Presumptive negative U Marijuana (THC) Screen Presumptive negative Drugs of Abuse Note Disclamer RPR Blood Type Antibody Screen 04/16/18 04/16/18 04/16/18 05:50 07:09 13:37 WBC RBC Hgb Hct MCV MCH MCHC RDW Plt Count POC Glucose 98 92 Hemoglobin A1c 7.1 H Urine Color Urine Turbidity Urine pH Ur Specific [place] Urine Protein Urine Glucose (UA) Urine Ketones Urine Blood Urine Nitrite Urine Bilirubin Urine Urobilinogen Ur Leukocyte Esterase Urine WBC (Auto) Urine RBC (Auto) U Epithel Cells (Auto) Urine Mucus Urine Opiates Screen Urine Methadone Screen Ur Barbiturates Screen Ur Phencyclidine Scrn Ur Amphetamines Screen U Benzodiazepines Scrn Urine Cocaine Screen U Marijuana (THC) Screen Drugs of Abuse Note RPR Blood Type Antibody Screen
[2018-04-16] MEDS ORDERED: fentaNYL-BUPIV 2 MCG/ML-0.125% 200 MCG/100 ML BAG EPIDURAL SCH (15:00)
--- NOTE | 2018-04-16 17:30 | Progress Note ---
Assessment and Plan - Patient Problems (1) 38 weeks gestation of Current Visit: Yes Status: Acute (2) Gestational diabetes mellitus, diet-controlled Onset Date: ~04/16/18 Current Visit: Yes Status: Acute Qualifiers: Trimester: third trimester Qualified Code(s): O24.410 - Gestational diabetes mellitus in , diet controlled Plan to address problem: -cont IOL -now in active phase of labor and s/p AROM with placement of internal devices. I d/w risks of operative delivery for NRFHTs or for failure to progress. Pt expressed understanding and questions were addressed and answered. (3) Group B streptococcal carriage complicating Onset Date: ~04/16/18 Current Visit: Yes Status: Acute Plan to address problem: -s/p several doses of antibx -cont until delivery -no s/sx of chorio at this time (4) Polyhydramnios affecting in third trimester Onset Date: ~04/16/18 Current Visit: Yes Status: Acute Plan to address problem: -s/p AROM with about 2L of fluid released -head now well applied -anticipate Subjective - Subjective Date of service: 04/16/18 Principal diagnosis: IUP @ 38wk2d, uncontrolled GDM, Poly, IOL Interval history: Pt comfortable with epidural in place. I d/w tracing and need for place internal monitors. Risk were d/w pt and questions were addressed. Pt agrees to placement of ISE and IUPC. Patient reports: no new complaints (comfortable with epidural) Objective - Vital Signs Vital Signs: Vital Signs - 12hr 04/16/18 04/16/18 04/16/18 05:27 05:32 05:34 Temperature Pulse Rate 98 H 104 H 102 H Respiratory Rate Blood Pressure Blood Pressure [Right] O2 Sat by Pulse 92 96 94 Oximetry 04/16/18 04/16/18 04/16/18 05:37 05:40 05:42 Temperature Pulse Rate 102 H 103 H 96 H Respiratory Rate Blood Pressure Blood Pressure [Right] O2 Sat by Pulse 97 92 96 Oximetry 04/16/18 04/16/18 04/16/18 05:46 05:47 05:52 Temperature 86.7 F L Pulse Rate 105 H 104 H 107 H Respiratory 20 Rate Blood Pressure 135/86 Blood Pressure 135/86 [Right] O2 Sat by Pulse 94 98 94 Oximetry 04/16/18 04/16/18 04/16/18 05:57 06:02 06:07 Temperature Pulse Rate 102 H 103 H 98 H Respiratory Rate Blood Pressure Blood Pressure [Right] O2 Sat by Pulse 95 98 96 Oximetry 04/16/18 04/16/18 04/16/18 06:12 06:18 06:22 Temperature Pulse Rate 103 H 98 H 94 H Respiratory Rate Blood Pressure Blood Pressure [Right] O2 Sat by Pulse 96 96 96 Oximetry 04/16/18 04/16/18 04/16/18 06:27 06:32 06:38 Temperature Pulse Rate 102 H 97 H 98 H Respiratory Rate Blood Pressure Blood Pressure [Right] O2 Sat by Pulse 96 97 95 Oximetry 04/16/18 04/16/18 04/16/18 06:39 06:43 06:48 Temperature Pulse Rate 100 H 104 H 97 H Respiratory Rate Blood Pressure 120/76 Blood Pressure [Right] O2 Sat by Pulse 93 95 97 Oximetry 04/16/18 04/16/18 04/16/18 06:53 06:59 07:03 Temperature Pulse Rate 98 H 97 H 101 H Respiratory Rate Blood Pressure Blood Pressure [Right] O2 Sat by Pulse 97 97 97 Oximetry 04/16/18 04/16/18 04/16/18 07:08 07:09 07:13 Temperature Pulse Rate 108 H 86 104 H Respiratory Rate Blood Pressure Blood Pressure [Right] O2 Sat by Pulse 97 91 96 Oximetry 04/16/18 04/16/18 04/16/18 07:28 07:31 07:36 Temperature Pulse Rate 105 H 109 H 98 H Respiratory Rate Blood Pressure 134/84 Blood Pressure [Right] O2 Sat by Pulse 97 98 Oximetry 04/16/18 04/16/18 04/16/18 07:37 07:40 07:46 Temperature Pulse Rate 111 H 110 H 107 H Respiratory Rate Blood Pressure 137/78 Blood Pressure [Right] O2 Sat by Pulse 97 97 Oximetry 04/16/18 04/16/18 04/16/18 07:51 07:56 08:01 Temperature Pulse Rate 103 H 95 H 108 H Respiratory Rate Blood Pressure Blood Pressure [Right] O2 Sat by Pulse 95 97 94 Oximetry 04/16/18 04/16/18 04/16/18 08:04 08:13 08:38 Temperature 98.6 F Pulse Rate 109 H 107 H 113 H Respiratory 20 Rate Blood Pressure 115/70 151/80 Blood Pressure 134/84 [Right] O2 Sat by Pulse 97 Oximetry 04/16/18 04/16/18 04/16/18 09:38 10:39 11:38 Temperature Pulse Rate 108 H 110 H 102 H Respiratory Rate Blood Pressure 130/80 129/75 106/63 Blood Pressure [Right] O2 Sat by Pulse Oximetry - Exam FHR: category 2 (due to occassional late decels but overall reassuring) Cervical Dilatation: 4 (AROM with copius amount of clear fluid noted (at least 2L) and ISE and IUPC placed w/o difficulty.) Cervical Effacement Percentage: 70 station: -1 Uterine Contraction Pattern: Regular (but spacing out at this time) Uterine Tone Measurement Phase: Resting Uterine Contraction Intensity: Moderate Extremities: normal - Labs Labs: Abnormal Labs 04/15/18 04/15/18 04/16/18 21:00 22:57 07:09 RBC 3.58 L POC Glucose 111 H Hemoglobin A1c 7.1 H Laboratory Results - last 24 hr 04/15/18 04/15/18 04/15/18 21:00 21:00 21:00 WBC 6.9 RBC 3.58 L Hgb 10.3 Hct 31.0 MCV 87 MCH 29 MCHC 33 RDW 14.9 Plt Count 231 POC Glucose Hemoglobin A1c Urine Color Urine Turbidity Urine pH Ur Specific [place] Urine Protein Urine Glucose (UA) Urine Ketones Urine Blood Urine Nitrite Urine Bilirubin Urine Urobilinogen Ur Leukocyte Esterase Urine WBC (Auto) Urine RBC (Auto) U Epithel Cells (Auto) Urine Mucus Urine Opiates Screen Urine Methadone Screen Ur Barbiturates Screen Ur Phencyclidine Scrn Ur Amphetamines Screen U Benzodiazepines Scrn Urine Cocaine Screen U Marijuana (THC) Screen Drugs of Abuse Note RPR Nonreactive Blood Type O POSITIVE Antibody Screen Negative 04/15/18 04/16/18 04/16/18 22:57 02:40 02:40 WBC RBC Hgb Hct MCV MCH MCHC RDW Plt Count POC Glucose 111 H Hemoglobin A1c Urine Color Yellow Urine Turbidity Clear Urine pH 5.0 Ur Specific [place] 1.016 Urine Protein <15 mg/dl Urine Glucose (UA) 50 Urine Ketones 20 Urine Blood Neg Urine Nitrite Neg Urine Bilirubin Neg Urine Urobilinogen < 2.0 Ur Leukocyte Esterase Neg Urine WBC (Auto) 1.0 Urine RBC (Auto) 2.0 U Epithel Cells (Auto) < 1.0 Urine Mucus Few Urine Opiates Screen Presumptive negative Urine Methadone Screen Presumptive negative Ur Barbiturates Screen Presumptive negative Ur Phencyclidine Scrn Presumptive negative Ur Amphetamines Screen Presumptive negative U Benzodiazepines Scrn Presumptive negative Urine Cocaine Screen Presumptive negative U Marijuana (THC) Screen Presumptive negative Drugs of Abuse Note Disclamer RPR Blood Type Antibody Screen 04/16/18 04/16/18 04/16/18 05:50 07:09 13:37 WBC RBC Hgb Hct MCV MCH MCHC RDW Plt Count POC Glucose 98 92 Hemoglobin A1c 7.1 H Urine Color Urine Turbidity Urine pH Ur Specific [place] Urine Protein Urine Glucose (UA) Urine Ketones Urine Blood Urine Nitrite Urine Bilirubin Urine Urobilinogen Ur Leukocyte Esterase Urine WBC (Auto) Urine RBC (Auto) U Epithel Cells (Auto) Urine Mucus Urine Opiates Screen Urine Methadone Screen Ur Barbiturates Screen Ur Phencyclidine Scrn Ur Amphetamines Screen U Benzodiazepines Scrn Urine Cocaine Screen U Marijuana (THC) Screen Drugs of Abuse Note RPR Blood Type Antibody Screen
--- NOTE | 2018-04-16 17:31 | Progress Note ---
Assessment and Plan - Patient Problems (1) 38 weeks gestation of Current Visit: Yes Status: Acute (2) Gestational diabetes mellitus, diet-controlled Onset Date: ~04/16/18 Current Visit: Yes Status: Acute Qualifiers: Trimester: third trimester Qualified Code(s): O24.410 - Gestational diabetes mellitus in , diet controlled (3) Group B streptococcal carriage complicating Onset Date: ~04/16/18 Current Visit: Yes Status: Acute (4) Polyhydramnios affecting in third trimester Onset Date: ~04/16/18 Current Visit: Yes Status: Acute Subjective - Subjective Principal diagnosis: IUP @ 38wk2d, uncontrolled GDM, Poly, IOL Interval history: Pt comfortable with epidural in place. I d/w tracing and need for place internal monitors. Risk were d/w pt and questions were addressed. Pt agrees to placement of ISE and IUPC. Patient reports: no new complaints (comfortable with epidural) Objective - Vital Signs Vital Signs: Vital Signs - 12hr 04/16/18 04/16/18 04/16/18 05:32 05:34 05:37 Temperature Pulse Rate 104 H 102 H 102 H Respiratory Rate Blood Pressure Blood Pressure [Right] O2 Sat by Pulse 96 94 97 Oximetry 04/16/18 04/16/18 04/16/18 05:40 05:42 05:46 Temperature Pulse Rate 103 H 96 H 105 H Respiratory Rate Blood Pressure Blood Pressure [Right] O2 Sat by Pulse 92 96 94 Oximetry 04/16/18 04/16/18 04/16/18 05:47 05:52 05:57 Temperature 86.7 F L Pulse Rate 104 H 107 H 102 H Respiratory 20 Rate Blood Pressure 135/86 Blood Pressure 135/86 [Right] O2 Sat by Pulse 98 94 95 Oximetry 04/16/18 04/16/18 04/16/18 06:02 06:07 06:12 Temperature Pulse Rate 103 H 98 H 103 H Respiratory Rate Blood Pressure Blood Pressure [Right] O2 Sat by Pulse 98 96 96 Oximetry 04/16/18 04/16/18 04/16/18 06:18 06:22 06:27 Temperature Pulse Rate 98 H 94 H 102 H Respiratory Rate Blood Pressure Blood Pressure [Right] O2 Sat by Pulse 96 96 96 Oximetry 04/16/18 04/16/18 04/16/18 06:32 06:38 06:39 Temperature Pulse Rate 97 H 98 H 100 H Respiratory Rate Blood Pressure 120/76 Blood Pressure [Right] O2 Sat by Pulse 97 95 93 Oximetry 04/16/18 04/16/18 04/16/18 06:43 06:48 06:53 Temperature Pulse Rate 104 H 97 H 98 H Respiratory Rate Blood Pressure Blood Pressure [Right] O2 Sat by Pulse 95 97 97 Oximetry 04/16/18 04/16/18 04/16/18 06:59 07:03 07:08 Temperature Pulse Rate 97 H 101 H 108 H Respiratory Rate Blood Pressure Blood Pressure [Right] O2 Sat by Pulse 97 97 97 Oximetry 04/16/18 04/16/18 04/16/18 07:09 07:13 07:28 Temperature Pulse Rate 86 104 H 105 H Respiratory Rate Blood Pressure 134/84 Blood Pressure [Right] O2 Sat by Pulse 91 96 Oximetry 04/16/18 04/16/18 04/16/18 07:31 07:36 07:37 Temperature Pulse Rate 109 H 98 H 111 H Respiratory Rate Blood Pressure 137/78 Blood Pressure [Right] O2 Sat by Pulse 97 98 Oximetry 04/16/18 04/16/18 04/16/18 07:40 07:46 07:51 Temperature Pulse Rate 110 H 107 H 103 H Respiratory Rate Blood Pressure Blood Pressure [Right] O2 Sat by Pulse 97 97 95 Oximetry 04/16/18 04/16/18 04/16/18 07:56 08:01 08:04 Temperature Pulse Rate 95 H 108 H 109 H Respiratory Rate Blood Pressure 115/70 Blood Pressure [Right] O2 Sat by Pulse 97 94 Oximetry 04/16/18 04/16/18 04/16/18 08:13 08:38 09:38 Temperature 98.6 F Pulse Rate 107 H 113 H 108 H Respiratory 20 Rate Blood Pressure 151/80 130/80 Blood Pressure 134/84 [Right] O2 Sat by Pulse 97 Oximetry 04/16/18 04/16/18 10:39 11:38 Temperature Pulse Rate 110 H 102 H Respiratory Rate Blood Pressure 129/75 106/63 Blood Pressure [Right] O2 Sat by Pulse Oximetry - Exam Cervical Dilatation: 4 Cervical Effacement Percentage: 70 station: -1 - Labs Labs: Abnormal Labs 04/15/18 04/15/18 04/16/18 21:00 22:57 07:09 RBC 3.58 L POC Glucose 111 H Hemoglobin A1c 7.1 H Laboratory Results - last 24 hr 04/15/18 04/15/18 04/15/18 21:00 21:00 21:00 WBC 6.9 RBC 3.58 L Hgb 10.3 Hct 31.0 MCV 87 MCH 29 MCHC 33 RDW 14.9 Plt Count 231 POC Glucose Hemoglobin A1c Urine Color Urine Turbidity Urine pH Ur Specific [place] Urine Protein Urine Glucose (UA) Urine Ketones Urine Blood Urine Nitrite Urine Bilirubin Urine Urobilinogen Ur Leukocyte Esterase Urine WBC (Auto) Urine RBC (Auto) U Epithel Cells (Auto) Urine Mucus Urine Opiates Screen Urine Methadone Screen Ur Barbiturates Screen Ur Phencyclidine Scrn Ur Amphetamines Screen U Benzodiazepines Scrn Urine Cocaine Screen U Marijuana (THC) Screen Drugs of Abuse Note RPR Nonreactive Blood Type O POSITIVE Antibody Screen Negative 04/15/18 04/16/18 04/16/18 22:57 02:40 02:40 WBC RBC Hgb Hct MCV MCH MCHC RDW Plt Count POC Glucose 111 H Hemoglobin A1c Urine Color Yellow Urine Turbidity Clear Urine pH 5.0 Ur Specific [place] 1.016 Urine Protein <15 mg/dl Urine Glucose (UA) 50 Urine Ketones 20 Urine Blood Neg Urine Nitrite Neg Urine Bilirubin Neg Urine Urobilinogen < 2.0 Ur Leukocyte Esterase Neg Urine WBC (Auto) 1.0 Urine RBC (Auto) 2.0 U Epithel Cells (Auto) < 1.0 Urine Mucus Few Urine Opiates Screen Presumptive negative Urine Methadone Screen Presumptive negative Ur Barbiturates Screen Presumptive negative Ur Phencyclidine Scrn Presumptive negative Ur Amphetamines Screen Presumptive negative U Benzodiazepines Scrn Presumptive negative Urine Cocaine Screen Presumptive negative U Marijuana (THC) Screen Presumptive negative Drugs of Abuse Note Disclamer RPR Blood Type Antibody Screen 04/16/18 04/16/18 04/16/18 05:50 07:09 13:37 WBC RBC Hgb Hct MCV MCH MCHC RDW Plt Count POC Glucose 98 92 Hemoglobin A1c 7.1 H Urine Color Urine Turbidity Urine pH Ur Specific [place] Urine Protein Urine Glucose (UA) Urine Ketones Urine Blood Urine Nitrite Urine Bilirubin Urine Urobilinogen Ur Leukocyte Esterase Urine WBC (Auto) Urine RBC (Auto) U Epithel Cells (Auto) Urine Mucus Urine Opiates Screen Urine Methadone Screen Ur Barbiturates Screen Ur Phencyclidine Scrn Ur Amphetamines Screen U Benzodiazepines Scrn Urine Cocaine Screen U Marijuana (THC) Screen Drugs of Abuse Note RPR Blood Type Antibody Screen
[2018-04-16] MEDS ORDERED: XYLOCAINE MPF 2% ONE (18:12)
--- NOTE | 2018-04-16 19:38 | Progress Note ---
Assessment and Plan patient c/o rectal pressure, SVE now 6/80/0 with good decent of head on cervix with ctx. fht with occasional late decel noted - good variability and accels. Anticipate . Dr. Hawthorne updated on status. - Patient Problems (1) Poorly controlled diabetes mellitus Current Visit: Yes Status: Acute (2) 38 weeks gestation of Current Visit: Yes Status: Acute (3) Group B streptococcal carriage complicating Onset Date: ~04/16/18 Current Visit: Yes Status: Acute (4) Polyhydramnios affecting in third trimester Onset Date: ~04/16/18 Current Visit: Yes Status: Acute Subjective - Subjective Date of service: 04/16/18 Principal diagnosis: IUP @ 38wk2d, uncontrolled GDM, Poly, IOL Patient reports: no new complaints (comfortable with epidural, some rectal pressure) Objective - Vital Signs Vital Signs: Vital Signs - 12hr 04/16/18 04/16/18 04/16/18 07:36 07:37 07:40 Temperature Pulse Rate 98 H 111 H 110 H Respiratory Rate Blood Pressure 137/78 Blood Pressure [Right] O2 Sat by Pulse 98 97 Oximetry 04/16/18 04/16/18 04/16/18 07:46 07:51 07:56 Temperature Pulse Rate 107 H 103 H 95 H Respiratory Rate Blood Pressure Blood Pressure [Right] O2 Sat by Pulse 97 95 97 Oximetry 04/16/18 04/16/18 04/16/18 08:01 08:04 08:13 Temperature 98.6 F Pulse Rate 108 H 109 H 107 H Respiratory 20 Rate Blood Pressure 115/70 Blood Pressure 134/84 [Right] O2 Sat by Pulse 94 97 Oximetry 04/16/18 04/16/18 04/16/18 08:38 09:38 10:39 Temperature Pulse Rate 113 H 108 H 110 H Respiratory Rate Blood Pressure 151/80 130/80 129/75 Blood Pressure [Right] O2 Sat by Pulse Oximetry 04/16/18 04/16/18 04/16/18 11:38 19:10 19:18 Temperature 98.2 F Pulse Rate 102 H 90 Respiratory 18 Rate Blood Pressure 106/63 Blood Pressure 112/58 [Right] O2 Sat by Pulse 98 Oximetry - Exam Breasts: normal Cardiovascular: Regular rate Lungs: Clear to auscultation, Normal air movement Abdomen: Present: normal appearance, soft Vulva: both: normal Uterus: Present: normal FHR: category 2 Uterine Contraction Monitor Mode: Internal Cervical Dilatation: 6 Cervical Effacement Percentage: 80 station: 0 Uterine Contraction Frequency (min): 2 Uterine Contraction Duration: 60 Uterine Contraction Pattern: Regular Uterine Tone Measurement Phase: Contraction Uterine Contraction Intensity: Moderate Extremities: normal Deep Tendon Reflex Grade: Normal +2 - Labs Labs: Abnormal Labs 04/15/18 04/15/18 04/16/18 21:00 22:57 07:09 RBC 3.58 L POC Glucose 111 H Hemoglobin A1c 7.1 H Laboratory Results - last 24 hr 04/15/18 04/15/18 04/15/18 21:00 21:00 21:00 WBC 6.9 RBC 3.58 L Hgb 10.3 Hct 31.0 MCV 87 MCH 29 MCHC 33 RDW 14.9 Plt Count 231 POC Glucose Hemoglobin A1c Urine Color Urine Turbidity Urine pH Ur Specific [place] Urine Protein Urine Glucose (UA) Urine Ketones Urine Blood Urine Nitrite Urine Bilirubin Urine Urobilinogen Ur Leukocyte Esterase Urine WBC (Auto) Urine RBC (Auto) U Epithel Cells (Auto) Urine Mucus Urine Opiates Screen Urine Methadone Screen Ur Barbiturates Screen Ur Phencyclidine Scrn Ur Amphetamines Screen U Benzodiazepines Scrn Urine Cocaine Screen U Marijuana (THC) Screen Drugs of Abuse Note RPR Nonreactive Blood Type O POSITIVE Antibody Screen Negative 04/15/18 04/16/18 04/16/18 22:57 02:40 02:40 WBC RBC Hgb Hct MCV MCH MCHC RDW Plt Count POC Glucose 111 H Hemoglobin A1c Urine Color Yellow Urine Turbidity Clear Urine pH 5.0 Ur Specific [place] 1.016 Urine Protein <15 mg/dl Urine Glucose (UA) 50 Urine Ketones 20 Urine Blood Neg Urine Nitrite Neg Urine Bilirubin Neg Urine Urobilinogen < 2.0 Ur Leukocyte Esterase Neg Urine WBC (Auto) 1.0 Urine RBC (Auto) 2.0 U Epithel Cells (Auto) < 1.0 Urine Mucus Few Urine Opiates Screen Presumptive negative Urine Methadone Screen Presumptive negative Ur Barbiturates Screen Presumptive negative Ur Phencyclidine Scrn Presumptive negative Ur Amphetamines Screen Presumptive negative U Benzodiazepines Scrn Presumptive negative Urine Cocaine Screen Presumptive negative U Marijuana (THC) Screen Presumptive negative Drugs of Abuse Note Disclamer RPR Blood Type Antibody Screen 04/16/18 04/16/18 04/16/18 05:50 07:09 13:37 WBC RBC Hgb Hct MCV MCH MCHC RDW Plt Count POC Glucose 98 92 Hemoglobin A1c 7.1 H Urine Color Urine Turbidity Urine pH Ur Specific [place] Urine Protein Urine Glucose (UA) Urine Ketones Urine Blood Urine Nitrite Urine Bilirubin Urine Urobilinogen Ur Leukocyte Esterase Urine WBC (Auto) Urine RBC (Auto) U Epithel Cells (Auto) Urine Mucus Urine Opiates Screen Urine Methadone Screen Ur Barbiturates Screen Ur Phencyclidine Scrn Ur Amphetamines Screen U Benzodiazepines Scrn Urine Cocaine Screen U Marijuana (THC) Screen Drugs of Abuse Note RPR Blood Type Antibody Screen
[2018-04-16] MEDS ORDERED: XYLOCAINE 2% INFILTRATI ONE (20:22)
--- NOTE | 2018-04-16 21:29 | Procedure Note ---
OB Delivery Note - Delivery Date of Delivery: 04/16/18 (Male infant, Shoulder dystocia) Sat Tutor: KADY ALMONTE Estimated blood loss: 300cc - Vaginal Delivery presentation: vertex Delivery position: OA (MICK, right shoulder anterior) Intrapartum events: shoulder dystocia, other(please specify) (uncontrolled GDM) Delivery induction: cervidil Delivery augmentation: rupture of membranes, pitocin Delivery monitor: internal FHT, internal uterine Route of delivery: Delivery placenta: spontaneous Delivery cord: nuchal cord, 3 umbilical vessels Episiotomy: none Delivery laceration: none Anesthesia: epidural Delivery comments: male infant del over intact perineum. Infant's head del ROBER, turtle sign immediately identified - called placed to desk for assistance. Legs back in [place] and HOB flat, patient pushing in legs and unable to focus pushing effort. Dr. Hawthorne called by nursing staff and staff emergency initiated. [place] position and supra public pressure performed by Dawna Stoddard RN along with maternal pushing effort used again to delivery anterior shoulder. Cord and clamped x 2 and cut, handed off to awaiting NICU and CARBIDER. Cord blood collected. Placenta del intact and complete. Pit to IVF. No lacerations to repair. 's apgars 6/9. EBL 300, 's weight 9#2oz. Mother and remain LDR stable. - Infant A at 1 minute: 6 at 5 minutes: 9 Gender: Male (9#2)
[2018-04-16] MEDS ORDERED: PERCOCET 5/325 PO ONE (21:53)
[2018-04-16] MEDS ORDERED: PITOCin/NS 20 UNIT/1000ML DRIP 20 UNITS/1,000 ML BAG IV SCH (23:11)
[2018-04-16] MEDS ORDERED: MILK OF MAGNESIA PO PRN (23:11)
[2018-04-16] MEDS ORDERED: LANSINOH TP PRN (23:11)
[2018-04-16] MEDS ORDERED: BENADRYL PO PRN (23:11)
[2018-04-16] MEDS ORDERED: TUCKS PAD TP PRN (23:11)
[2018-04-16] MEDS ORDERED: SODIUM CHLORIDE FLUSH SYRINGE 10 ML IV PRN (23:11)
[2018-04-16] MEDS ORDERED: DULCOLAX PR PRN (23:11)
[2018-04-16] MEDS ORDERED: PHENERGAN PO PRN (23:11)
[2018-04-16] MEDS: COLACE PO SCH (23:29)
[2018-04-16] MEDS: MOTRIN PO SCH (23:29)
[2018-04-17] MEDS ORDERED: PITOCin/NS 20 UNIT/1000ML DRIP 20,000 MILLIUNITS/1,000 ML BAG IV ONE (04:45)
[2018-04-17] MEDS: MOTRIN PO SCH ×3 (06:13→17:38)
--- NOTE | 2018-04-17 06:37 | Progress Note ---
Assessment and Plan Pt resting No c/o voiced VSS FF below umb Lochia mod Perineum intact H&H pending doing well s/p vag delivery P: continue pathway d/c in AM Subjective - Subjective Date of service: 04/17/18 (no complaints voiced) Principal diagnosis: Day # 1 s/p Interval history: EDC Confirmation: 04/28/2018 Gestational Age: 7 3/7 weeks Past History : 5 Term Births: 2 Living Children: 2 Para: 2 Aborta: 2 Ectopics: 2 # 1 Delivery date: 07/21/2006 Weeks Gestation: 40 Delivery type: Delivery location: [facility] Infant Sex: Female weight: 9lb 12oz # 2 Delivery date: 06/27/2007 Weeks Gestation: 40 Delivery type: Delivery location: [facility] Infant Sex: Female weight: 9lb # 3 Delivery date: 10/2016 Delivery type: ectopic # 4 Delivery date: 2016 Delivery type: ectopic Past Medical History: Fast heart rate diagnosed in ED; has appt to follow up with cardiology Past Surgical History: two ectopics in 2016 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 Abnormal PAP: negative Family Hx: Mother-HTN Father from thyroid cancer Social Hx: Denies smoking/drugs/alcohol Infection History Hx of STD: none HIV Risk Eval: no Personal hx. of genital herpes: no Partner hx. of genital herpes: no Rash, Viral, or Febrile illness since last LMP? no Varicella/Chicken Pox Status: Previous Disease Genetic History Congenital Heart Defect: Mom: no Dad: no Sid Disease: Mom: no Dad: no Thalassemia Mom: no Dad: no Neural Tube Defect Mom: no Dad: no Down's Syndrome Mom: no Dad: no Spencer-Sachs Mom: no Dad: no Sickle Cell Disease/Trait Mom: no Dad: no Hemophilia Mom: no Dad: no Muscular Dystrophy Mom: no Dad: no Cystic Fibrosis Mom: no Dad: no [place] Chorea Mom: no Dad: no Mental Retardation Mom: no Dad: no Fragile X Mom: no Dad: no Other Genetic/Chromosomal Disorder Mom: no Dad: no Child w/other defect Mom: no Dad: no Enviromental Exposures Medication, drug, or alcohol use since LMP: no Exposure to Cat Liter: no Active Medications (reviewed today): None Current Allergies (reviewed today): No known allergies Patient reports: appetite normal, voiding normally, pain well controlled, ambulating normally : doing well Objective - Vital Signs Latest vital signs: Vital Signs Temp Pulse Resp BP BP Pulse Ox 04/17/18 04:00 98.7 F 72 18 101/69 04/16/18 23:00 98.6 F 80 18 111/70 04/16/18 22:34 98.8 F 04/16/18 22:02 18 04/16/18 21:48 110 H 18 114/70 96 04/16/18 21:20 99.1 F 103 H 16 131/71 97 04/16/18 19:18 98.2 F 04/16/18 19:10 90 18 112/58 98 04/16/18 11:38 102 H 106/63 04/16/18 10:39 110 H 129/75 04/16/18 09:38 108 H 130/80 04/16/18 08:38 113 H 151/80 04/16/18 08:13 98.6 F 107 H 20 134/84 97 04/16/18 08:04 109 H 115/70 04/16/18 08:01 108 H 94 04/16/18 07:56 95 H 97 04/16/18 07:51 103 H 95 04/16/18 07:46 107 H 97 04/16/18 07:40 110 H 97 04/16/18 07:37 111 H 137/78 04/16/18 07:36 98 H 98 04/16/18 07:31 109 H 97 04/16/18 07:28 105 H 134/84 04/16/18 07:13 104 H 96 04/16/18 07:09 86 91 04/16/18 07:08 108 H 97 04/16/18 07:03 101 H 97 04/16/18 06:59 97 H 97 04/16/18 06:53 98 H 97 04/16/18 06:48 97 H 97 04/16/18 06:43 104 H 95 04/16/18 06:39 100 H 120/76 93 04/16/18 06:38 98 H 95 Intake and Output 04/16/18 04/16/18 04/17/18 14:59 22:59 06:59 Intake Total 50 1000 300 Output Total 1400 Balance 50 1000 -1100 Intake: IV 50 1000 AMPICILLIN/NS 1 GM/50 ML 50 1 gm In 50 ml @ 100 mls/ hr IV Q4H [facility] Rx#: [id number] Lactated Ringers 1,000 ml 1000 @ 125 mls/hr IV DIRECT WALTER Rx#:[id number] PITOCin/NS 30 UNIT/500ML 0 30 units In 500 ml @ 4 MILLIUNITS/MIN 4 mls/hr IV TITR WALTER Rx#:[id number] Intake, Free Water 300 Output: Urine 1400 Void 1400 Other: Total, Output Amount 600 # Voids Void 1 Estimated Blood Loss 300 - Exam Breasts: Present: normal Cardiovascular: Present: Regular rate Lungs: Present: Normal air movement Abdomen: Present: normal appearance, soft, normal bowel sounds Vulva: both: normal Uterus: Present: normal, firm, fundal height below umbilicus Extremities: Present: normal Incision: Present: normal, dry, intact - Labs Labs: Abnormal lab results 04/16/18 Range/Units 07:09 Hemoglobin A1c 7.1 H (4-6) %
[2018-04-17] MEDS: TYLENOL PO PRN ×2 (08:13→23:05)
[2018-04-17 08:53] LABS: Hematocrit 26.6 % (30.3-42.9); Hemoglobin 8.8 gm/dl (10.1-14.3)
[2018-04-17] MEDS: PRENATAL VITAMIN PO SCH (11:29)
[2018-04-17] MEDS: COLACE PO SCH ×2 (11:29→22:02)
[2018-04-18] MEDS: MOTRIN PO SCH ×4 (00:13→18:57)
[2018-04-18] MEDS ORDERED: BOOSTRIX IM ONE (06:00)
--- NOTE | 2018-04-18 06:10 | Discharge Summary ---
Providers - Providers Date of Admission: 04/15/18 20:17 Date of discharge: 04/18/18 (pt agrees with d/c) Attending physician: NÉSTOR SOLARES 04/16/18 23:11 Consult to Sales Order Coordinator [CONS] Routine Reason For Exam: assistance with , SNS Primary care physician: NÉSTOR SOLARES Hospitalization Reason for admission: induction of labor Delivery: Episiotomy: none Laceration: none Incision: normal Other procedures: none complications: none Discharge diagnosis: IUP at term delivered [place] baby: male Hospital course: with mild shoulder dystocia; no maternal nor complications Pt resting w/o complaint VSS FF below umb Lochia small Perineum intact H&H stable No s/sx of anemia Doing well s/p vag delivery P: d/c today with instructions RTO 1 week circ and 4 weeks PP care. Condition at discharge: Good Disposition: DC-01 TO HOME OR SELFCARE - Discharge Diagnoses (1) Vaginal delivery Status: Acute Comment: RTO 4 weeks PP care Plan - Discharge Medications Prescriptions: Ibuprofen [Motrin 800 MG tab] 800 mg PO Q8HR PRN #30 tablet PRN Reason: Pain Lidocain2.5%/Prilocai2.5% [Emla] 5 gm TP ONCE PRN #1 tube PRN Reason: Pain - Provider Discharge Summary Activity: routine, no sex for 6 weeks, no heavy lifting 4 weeks, no strenuous exercise Diet: routine Instructions: routine Additional instructions: [] Smoking cessation referral if applicable(refer to patient education folder for contact #) [] Refer to [facility] Booklet Call your doctor immediately for: * Fever > 100.5 * Heavy vaginal bleeding ( >1 pad per hour) * Severe persistent headache * Shortness of breath * Reddened, hot, painful area to leg or breast * Drainage or odor from incision. * Keep incision clean and dry at all times and follow doctor's instructions regarding bathing/showering - Follow up plan Follow up: NÉSTOR SOLARES MD [Primary Care Provider] - 7 Days (Congratulations! Please call [phone] to schedule your visit in 4 weeks and your son's circumcision in 1 week. Bring the EMLA cream with you to his visit. Do NOT use at home. Call with concerns.)
[2018-04-18] MEDS: PRENATAL VITAMIN PO SCH (11:15)
[2018-04-18] MEDS: COLACE PO SCH ×2 (11:15→21:40)
[2018-04-18] MEDS: TYLENOL PO PRN ×2 (16:06→21:40)
[2018-04-18 17:15] VITALS: BP 120/78
[2018-04-18 20:42] LABS: Bilirubin,Urine NEG (Negative); Blood,Urine NEG (Negative); Color,Urine Yellow (Yellow); Mucus,Urine FEW /HPF; Protein,Urine <15 mg/dL mg/dL (Negative)
--- NOTE | 2018-04-18 21:38 | Event Note ---
Date: 04/18/18 called by RN stating patient complaining of severe cramping all day. On my arrival in the room patient sitting in bed, no distress, eating from food tray. Describes pain as cramping unresponsive to Tylenol and Motrin. She points to lower abdomen, not symphysis, hips or back, she admits to ambulating to bathroom. Denies bleeding, constipation or urinary symptoms. AVSS. Fundus is firm, below significantly below umbilicus and nontender. Delivery was reviewed, no lacerations. Will give Toradol x1 and tylenol now. She has no s/s infection or pubis separation. Explained cramping post is expected especially with breast feeding, of course severity varies. Methods for mitigating cramps discussed.
[2018-04-18] MEDS ORDERED: TORADOL PO NR (23:30)
[2018-04-19] MEDS ORDERED: TORADOL PO ONE (11:30)
== END 2018-04-18 23:57 | disposition home or self-care (01) | DRG 775 ==
LOC: LD 20:17 → OB 04-16 23:05
PROVIDERS: ADMIT Obstetrics & Gynecology; ATTEND Obstetrics & Gynecology
PROC: 10E0XZZ Delivery of Products of Conception, External Approach (ICD-10-PCS; principal; 2018-04-16)
PROC: 3E0R3BZ Introduction of Anesthetic Agent into Spinal Canal, Percutaneous Approach (ICD-10-PCS; 2018-04-16)
PROC: 00HU33Z Insertion of Infusion Device into Spinal Canal, Percutaneous Approach (ICD-10-PCS; 2018-04-16)
PROC: 3E0P7VZ Introduction of Hormone into Female Reproductive, Via Natural or Artificial Opening (ICD-10-PCS; 2018-04-16)
PROC: 10907ZC Drainage of Amniotic Fluid, Therapeutic from Products of Conception, Via Natural or Artificial Opening (ICD-10-PCS; 2018-04-16)
DX: O24.420 Gestational diabetes mellitus in childbirth, diet controlled (principal); O40.3XX0 Polyhydramnios, third trimester, not applicable or unspecified; O99.824 Streptococcus B carrier state complicating childbirth; O99.214 Obesity complicating childbirth; E66.9 Obesity, unspecified; O66.0 Obstructed labor due to shoulder dystocia; O69.81X0 Labor and delivery complicated by cord around neck, without compression, not applicable or unspecified; Z3A.38 38 weeks gestation of pregnancy; Z37.0 Single live birth; Z82.49 Family history of ischemic heart disease and other diseases of the circulatory system; Z68.36 Body mass index [BMI] 36.0-36.9, adult
CPT/HCPCS: 36415; 76815; 80307; 81001; 82962; 83036; 85014; 85018; 85027; 86592; 86850; 86900; 86901; 88307; 99211; G0463; J0290; J0595; J2590; J3010; J7120